=== PATIENT | female | born 1970 | race Hispanic/Latino ===

== ENCOUNTER → 2024-10-10 | Day surgery (SDC) | payer OTHER ==
[~2024-10-10] MED LIST: ACETAMINOPHEN 1000 MG/100 ML 100 ML IV ONE; DEXAMETHASONE SOD PHOS INJ 4 MG/ML SDV ONE; FAMOTIDINE 20 MG/2 ML VIAL IV ONE; FENTANYL CITRATE/PF 100MCG/2 ML INJ ONE; LACTATED RINGER'S 1,000 ML ONE; LIDOCAINE HCL 2% LOCAL INJ 5 ML SDV VIAL INJ ONE; MIDAZOLAM HCL 2 MG/2 ML VIAL ONE; ONDANSETRON HCL INJ 2MG/ML 2ML 2 MG/ML VIAL ONE; PROPOFOL IV EMULSION 10 MG/ML 20 ML VIAL ONE; VITAMIN D31250 MCG PO
[2024-10-10 15:32] VITALS: TEMP 98
[2024-10-10] MEDS: FENTANYL CITRATE/PF 100MCG/2 ML INJ IV ONE ×3 (16:00→16:12)
[2024-10-10 16:30] VITALS: BP 118/71; PULSE 52; RESP 16; O2SAT 98
== END | disposition home or self-care (01) ==
LOC: OR 11:00
PROVIDERS: ATTEND Specialist
DX: G56.03 Carpal tunnel syndrome, bilateral upper limbs (principal); E66.01 Morbid (severe) obesity due to excess calories; Z71.82 Exercise counseling; Z01.810 Encounter for preprocedural cardiovascular examination; Z68.30 Body mass index [BMI] 30.0-30.9, adult
CPT/HCPCS: 29848; 93005; J0131; J0690; J1100; J2003; J2250; J2405; J2704; J3010; J7121